=== PATIENT | female | born 1965 | race Caucasian/White ===

== ENCOUNTER → 2022-06-07 13:08 | Outpatient (CLI) | payer OTHER, SELFPAY ==
--- NOTE | ~2022-06-07 | MR_ITS ---
EXAMINATION: MR cervical spine wo con DATE: 06/07/2022 13:51 INDICATION: Cervical radiculopathy TECHNIQUE: Magnetic resonance imaging (MRI) of the cervical spine was performed without intravenous c ontrast. Sequences included sagittal T2-weighted FSE, sagittal T2-weighted FS FSE, sagittal T1-weight ed FSE, axial MERGE and axial T2-weighted FSE. COMPARISON: None FINDINGS: Mild reversal of the normal cervical lordosis. There is mild retrolisthesis C5 on C6. Vertebral body heights are normal. Severe disc height loss at C5-C6 and moderate disc height loss at C6-C7, both le vels with associated fibrofatty degenerative endplate changes. Mild disc height loss at C3-C4 and C4- C5. Marrow signal is otherwise normal. Cord signal intensity is normal. Cervical soft tissues are unr emarkable. The following disc levels are specifically discussed: C2-C3: The disc does not extend beyond the endplate margin. There is no uncovertebral joint osteoarth ritis. There is moderate right and moderate to severe left facet joint osteoarthritis. There is no ne ural foraminal stenosis. There is no central canal stenosis. C3-C4: Disc is bulging. There is mild left and moderate right uncovertebral joint osteoarthritis. The re is moderate left and severe right facet joint osteoarthritis. There is mild to moderate right neur al foraminal stenosis. There is mild central canal stenosis. C4-C5: Disc is bulging. There is mild bilateral uncovertebral joint osteoarthritis. There is moderate left and severe right facet joint osteoarthritis. There is mild right neural foraminal stenosis. The re is mild central canal stenosis with slight flattening of the ventral surface of the cord. C5-C6: Posterior disc osteophyte complex. There is severe bilateral uncovertebral joint osteoarthriti s. There is mild bilateral facet joint osteoarthritis. There is mild right and moderate left neural f oraminal stenosis. There is mild central canal stenosis with flattening of the ventral surface of the cord C6-C7: Posterior disc osteophyte complex. There is moderate right and severe left uncovertebral joint osteoarthritis. There is mild bilateral facet joint osteoarthritis. There is mild left and mild to m oderate right neural foraminal stenosis. There is mild central canal stenosis. C7-T1: The disc does not extend beyond the endplate margin. There is mild bilateral uncovertebral louisa nt osteoarthritis. There is moderate left and moderate to severe right facet joint osteoarthritis. Th ere is minimal right neural foraminal stenosis. There is no central canal stenosis. IMPRESSION: 1. Moderate to severe cervical spondylosis. Reviewed, dictated and finalized at location [facility]. [facility]
== END ==
PROVIDERS: PCP Physician Assistant
DX: M47.22 Other spondylosis with radiculopathy, cervical region (principal)
CPT/HCPCS: 72141

== ENCOUNTER → 2022-06-15 12:33 | Outpatient (CLI) | payer OTHER, SELFPAY ==
--- NOTE | ~2022-06-15 | MR_ITS ---
MRI of the lumbar spine Clinical History: Radiculopathy Technique: Axial T2-weighted images, and sagittal T1-weighted, T2-weighted, and T2 fat-sat images wer e acquired. Findings: No fracture identified in the lumbar spine. 4 mm anterolisthesis of L4 over L5 present. The re are reactive marrow signal changes about the L4-L5 disc space due to underlying degenerative disc disease. No suspicious bone marrow signal abnormality seen. At L1-L2, there is facet arthropathy. No disc bulge or herniation. No spinal canal stenosis. No defin ite neural foraminal narrowing. At L2-L3, there is no significant disc bulge or herniation. There is facet arthropathy. No spinal can al stenosis. Neural foramina are preserved. At L3-L4, there is no disc bulge or herniation. No spinal canal stenosis or neural foraminal narrowin g. At L4-L5, there is degenerative disc disease is mild diffuse disc bulge. There is facet arthropathy. No spinal canal stenosis. There is moderate to severe bilateral neural foraminal narrowing, right wor se than left. At L5-S1, there is minimal disc bulge. There is facet arthropathy. No spinal canal stenosis or neural foraminal narrowing. Paravertebral soft tissues are unremarkable. Impression: Overall mild degenerative spondylitic changes, as detailed above. Moderate to severe bilateral neural foraminal narrowing present L4-L5. 4 mm anterolisthesis of L4 over L5. Reviewed, dictated and finalized at [facility]. [employer] Impression: Overall mild degenerative spondylitic changes, as detailed above. Moderate to s evere bilateral neural foraminal narrowing present L4-L5. 4 mm anterolisthesis of L4 over L5.
== END ==
PROVIDERS: PCP Physician Assistant
DX: M47.26 Other spondylosis with radiculopathy, lumbar region (principal)
CPT/HCPCS: 72148